=== PATIENT | male | born 1985 | race Caucasian/White ===

== ENCOUNTER 2017-10-04 20:19 | Emergency (ER) | payer SELFPAY ==
[~2017-10-04] VITALS: Ht 167.6 cm; Wt 86.2 kg
[2017-10-04 20:22] VITALS: BP 150/110
[2017-10-04 20:30] VITALS: BP 150/110
== END 2017-10-04 21:30 | disposition home or self-care (01) ==
LOC: MED 20:19
DX: F10.129 Alcohol abuse with intoxication, unspecified (principal); I10 Essential (primary) hypertension; Y90.9 Presence of alcohol in blood, level not specified
CPT/HCPCS: 99283